=== PATIENT | male | born 1990 | race Caucasian/White ===

== ENCOUNTER 2020-12-27 19:26 | Emergency (ER) | payer MEDICAID, SELFPAY ==
--- NOTE | ~2020-12-27 | XR_ITS ---
EXAMINATION: XR ANKLE, RIGHT CLINICAL INFORMATION: Injury. COMPARISON: None TECHNIQUE: AP, lateral, and mortise views of the right ankle. FINDINGS: The bones and soft tissues are normal. No fracture. Alignment is anatomic. Joint spaces are maintained. No joint effusion. XR/XR ankle RT min 3V IMPRESSION: No fracture.
--- NOTE | ~2020-12-27 | US_ITS ---
EXAMINATION: ANKLE ULTRASOUND, RIGHT CLINICAL INFORMATION: Right posterior ankle pain with question of Achilles tendon rupture COMPARISON: None TECHNIQUE: Linear ultrasound transducer was utilized to examine the area of the Achilles tendon. FINDINGS: No evidence of an Achilles tendon rupture is seen. No abnormal mass or fluid collection is seen. US/US extremity nonvascular richardson IMPRESSION: Negative exam
[2020-12-27 19:39] VITALS: BP 142/83; PULSE 83; RESP 18; TEMP 36; O2SAT 99; BMI 32.8
--- NOTE | 2020-12-27 21:02 | ED.LOWEXIN ---
HPI - Extremity Injury (Lower) General Chief Complaint: Extremity Injury, Lower Stated Complaint: foot inj Source: patient Mode of arrival: wheelchair Limitations: no limitations History of Present Illness HPI Narrative: 30-year-old male presents with injury sustained to his right lower extremity, feels like his Achilles tendon popped as he was running bases by playing baseball. States that as soon as he landed on his foot and felt a tear he was unable to maintain weight. He does not report any other injuries at this time. MD complaint: ankle injury Onset (ago): hour(s) (Within the hour of arrival) Injury: Right: ankle Type of Injury: hyperflexion Place: street/outdoors Severity: severe Severity scale (1-10): 10 Relieving factors: nothing Exacerbating factors: weight bearing, movement and palpation Context: running Associated symptoms: snap/pop sensation, swelling and unable to bear weight Treatments prior to arrival: cold therapy Related Data Previous Rx's Medication Instructions Recorded oxycodone 5 mg PO Q6H PRN #10 tab 12/27/20 Allergies Allergy/AdvReac Type Severity Reaction Status Date / Time No Known Allergies Allergy Verified 12/27/20 19:39 Review of Systems Review of Systems: Constitutional: No Fever, No Chills ENT/Mouth: No Ear Pain, No Hoarseness, No sore throat Eyes: No Eye Pain, No Swelling, No Redness, No Foreign Body Cardiovascular: No Chest Pain, No SOB Respiratory: No Cough, No Dyspnea Gastrointestinal: No Nausea, No Vomiting, No Diarrhea, No abdominal Pain Genitourinary: No Dysuria, No Hematuria Musculoskeletal: positive right ankle pain, No Myalgias, No Joint Swelling Skin: No Skin lacerations, No rash Neuro: No Weakness, No Numbness, No Paresthesias, No Loss of Consciousness, No Dizziness, No Headache Psych: No Anxiety/Panic, No Depression Heme/Lymph: no easy bruising, no Lymphadenopathy Endocrine: No Polyuria, No Polydipsia Yes all other systems are reviewed and are negative [facility] Past Medical History Attestation statement: The following information was validated with the patient. Source: old records reviewed Social History Social History Advance Directives: No Advance Directives Information Provided: No Physical Exam Vital Signs: Vital Signs: Last Vital Signs Temp 96.8 F 12/27/20 19:39 Pulse 83 12/27/20 19:39 Resp 18 12/27/20 19:39 BP 142/83 H 12/27/20 19:39 Pulse Ox 99 12/27/20 19:39 Body Mass Index 32.8 Appearance: Alert. Oriented X3. No acute distress. Eyes: Pupils equal, round and reactive to light. ENT: Pharynx normal. Neck: Normal inspection. Neck supple. CVS: Normal heart rate and rhythm. Pulses normal. Respiratory: No respiratory distress. Breath sounds normal. Abdomen: Soft and nontender. Skin: Skin warm and dry. Normal skin color. Normal skin turgor. Extremities: Unable to flex, extend, internally and externally rotate the right lower extremity ankle, no calf pain, palpable space to the Achilles right above the calcaneus. Neuro: No motor deficit. No sensory deficit. Course Course Course Narrative: 30-year-old male presents with suspected Achilles tendon rupture. Will order x-rays as well as ultrasound. X-rays and ultrasound are negative however patient's physical presentation is positive as well as palpable space noted to the Achilles. Discussion with Orthopedic on-call, plan is for walking boot, nonweightbearing, crutches and follow-up in the office in the morning. Patient does understand the risks of narcotic use. Patient verbalized understanding of and agrees to plan of care discharge home. MDM - Extremity Injury (Lower) MDM Narrative Medical decision making narrative: Tendon rupture Differential Diagnosis Differential diagnosis: Likely ankle sprain and strain and ankle fracture Medical Records Attestation: I reviewed the patient's medical records. Lab Data Attestation: I reviewed the patient's lab results. Imaging Data Ankle x-ray: Attestation: I personally reviewed and interpreted this imaging study as follows: Radiologist's impression: EXAMINATION: XR ANKLE, RIGHT CLINICAL INFORMATION: Injury. COMPARISON: None TECHNIQUE: AP, lateral, and mortise views of the right ankle. FINDINGS: The bones and soft tissues are normal. No fracture. Alignment is anatomic. Joint spaces are maintained. No joint effusion. XR/XR ankle RT min 3V IMPRESSION: No fracture. Ankle ultrasound: Attestation: I personally reviewed and interpreted this imaging study as follows: Radiologist's impression: EXAMINATION: ANKLE ULTRASOUND, RIGHT CLINICAL INFORMATION: Right posterior ankle pain with question of Achilles tendon rupture COMPARISON: None TECHNIQUE: Linear ultrasound transducer was utilized to examine the area of the Achilles tendon. FINDINGS: No evidence of an Achilles tendon rupture is seen. No abnormal mass or fluid collection is seen. US/US extremity nonvascular richardson IMPRESSION: Negative exam Discharge Plan Discharge Clinical Impression: Achilles tendon rupture Qualifiers: Encounter type: initial encounter Laterality: right Qualified Code(s): S86.011A - Strain of right Achilles tendon, initial encounter Patient Disposition: Home, Self-Care Instructions: Achilles Tendon Rupture (ED) Additional Instructions: You were evaluated for injury to the right lower extremity. It is suspicious for a Achilles tendon rupture. Your ultrasound was negative however your presentation is positive. Please wear the walker boot. Do not put weight on that foot. Use crutches for all ambulation. We prescribed oxycodone which is a narcotic. This medication has high risk for addiction and abuse. Do not drive or operate machinery while taking this medication. This medication is constipating, please use MiraLax and Colace to help soften stools. Follow-up with orthopedics tomorrow. I discussed her case with Cherry FORBES. she is expecting your call. Thank you for choosing this emergency department for evaluation. Please follow-up with primary care physician as needed. Return to the emergency department for any new, concerning, or worsening symptoms. Prescriptions: New oxycodone 5 mg tablet 5 mg PO Q6H PRN (Reason: pain) Qty: 10 RF: 0 Referrals: Cherry Gant PA-C [Physician Section Cutter] - 2 days (Achilles tendon rupture) Stand Alone Forms: Work/School Release Interventions: ED Discharge Assessment Last Done: 12/28/20 00:24 Discharge Date/Time: 12/28/20 00:00
[2020-12-27] MEDS: oxyCODONE HCl Immed Release 5 MG TABLET PO (22:15)
--- NOTE | 2020-12-27 22:15 | PC.NURSE ---
Pt returns from [facility], medicated per MAR.
== END 2020-12-28 | disposition home or self-care (01) ==
PROVIDERS: Emergency Provider Internal Medicine
DX: S86.011A Strain of right Achilles tendon, initial encounter (principal); X58.XXXA Exposure to other specified factors, initial encounter; Y93.64 Activity, baseball; Y92.9 Unspecified place or not applicable; Y99.9 Unspecified external cause status
CPT/HCPCS: 73610; 76882; 99283; 99284

== ENCOUNTER → 2020-12-30 09:10 | Outpatient (BNVA) | payer MEDICAID, SELFPAY | PROVIDERS: Visit Provider Physician Assistant | DX: Z01.818 Encounter for other preprocedural examination (principal); S83.011A Lateral subluxation of right patella, initial encounter | CPT/HCPCS: 99202 ==

== ENCOUNTER 2021-01-03 12:17 | Day surgery (SDC) | payer MEDICAID, SELFPAY ==
--- NOTE | 2021-01-02 13:03 | P.CONAN_ITS ---
Documented by User: Justine Dean 01/02/21 13:06 HPI - Anesthesia Eval Consult details Narrative: 30yo M for Right Achilles Tendon Repair ? ROSARIO - reports waking with racing heart and sometimes SOB. No snoring per partner. Hx of negative sleep study, but pending repeat. prn opioids PMFSH Active Problems Active Problems: All Active Problems (Updated 12/30/20 @ 09:57 by Cherry Gant PA-C) Rupture of right Achilles tendon (Acute) Past Medical History Medical History No significant past medical history Social History Social History Alcohol intake: current Alcohol intake frequency: holidays/special occasions only Patient Tobacco Use Status: Never used Tobacco Use of substances other than those prescribed or required for medical reasons: No Have you been hit, kicked, punched, or otherwise hurt by someone within the past year? 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 Allergies Allergy/AdvReac Type Severity Reaction Status Date / Time No Known Allergies Allergy Verified 12/30/20 09:20 Exam Exam Date and Time: January 02, 2021 1303 Assessment and Plan Assessment Anesthesia Assessment: Chart Reviewed Documented by User: William Del Rosario MD 01/03/21 14:05 PMFSH Past Medical History Medical History No significant past medical history Social History Social History (Reviewed 01/03/21 @ 14:04 by WilliamMYESHA Gomez Alcohol intake: current Alcohol intake frequency: holidays/special occasions only Patient Tobacco Use Status: Never used Tobacco Use of substances other than those prescribed or required for medical reasons: No Have you been hit, kicked, punched, or otherwise hurt by someone within the past year? 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 Allergies Allergy/AdvReac Type Severity Reaction Status Date / Time No Known Allergies Allergy Verified 12/30/20 09:20 Exam Airway Mallampati Class: II TM Dist: >3cm Neck ROM: Full Loose/Missing/Broken Teeth: Yes (Front tooth repaired) Heart: RRR Assessment and Plan Assessment Anesthesia Assessment: Anesthesia Plan Discussed and Chart Reviewed Final Anesthetic Review NPO: Yes ASA Class: II Final Preanesthetic Review: No Changes in Pt Med Stat, Meds/Allgs Chart Reviewed, Consent Obtained/Reviewed and Anes Risks/Benef Reviewed Patient Risk: Intermediate Procedure Risk: Low Anesthetic Plan Anesthetic Plan: GA Disposition: Standard PACU
[2021-01-03] VITALS (9 sets, daily range): BP systolic 117–171; BP diastolic 61–92; PULSE 72–96; RESP 14–19; TEMP 36.1–36.4; O2SAT 94–100; BMI 32.8
[2021-01-03] MEDS: Lactated Ringers 1,000 ML 100 ML IVCONT (12:43)
[2021-01-03] MEDS: Scopolamine 1.5 MG PATCH.TD.3 TRANSDERMA (13:58)
--- NOTE | 2021-01-03 14:01 | MHC.SHP ---
Pre-Procedural Eval Section A The patient is an INPATIENT: No Changes since office visit: Yes Patient answered all questions; No Cold of Flu in the past 2 weeks, No New Medical Problems and No Changes in Medication The History & Physical has been completed within 30 days and I have reviewed it.: Yes Section B Chief Complaint: Achilles tendon rupture Allergies: Allergies Allergy/AdvReac Type Severity Reaction Status Date / Time No Known Allergies Allergy Verified 12/30/20 09:20 Plan I have reviewed the history and physical and performed a pertinent physical examination on my patient. No changes have occurred unless specified.
--- NOTE | 2021-01-03 15:35 | PM.OP ---
Brief Operative Note Date of Service: 01/03/21 Pre-op diagnosis: right achilles tendon rupture Post-op diagnosis: same Procedure: right achilles tendon repair Surgeon: Joaquin Beckman MD Anesthesia: GETA and local Was an Customer Acquisition Specialist used for this Procedure?: Yes Customer Acquisition Specialist: Flex Mathis Estimated blood loss (mL): 5 Tourniquet time (min): 30 Pathology: none sent Condition: stable Disposition: PACU
[2021-01-03] MEDS: Acetaminophen 325 MG TABLET 975 MG PO (16:05)
[2021-01-03] MEDS: HYDROmorphone HCl 0.5 MG/0.5 ML SYRINGE 0.25 MG IVPUSH ×2 (16:15→16:20)
--- NOTE | 2021-01-05 17:09 | P.OP_ITS ---
Operative Note Operative Note Date of Service: 01/05/21 Narrative: Pre-op diagnosis: right achilles tendon rupture Post-op diagnosis: same Procedure: right achilles tendon repair Surgeon: Joaquin Beckman MD Anesthesia: GETA and local Was an Automobile Appraiser used for this Procedure?: Yes Automobile Appraiser: Flex Mathis Estimated blood loss (mL): 5 Tourniquet time (min): 30 Pathology: none sent Condition: stable Disposition: PACU Procedure in detail: Patient brought the operating room placed prone and prepped and draped in standard sterile fashion. All bony prominences were well padded and a time-out was called to identify proper site procedure proper surgeon IV antibiotics per weight were administered. I began by exsanguinating the limb and insufflating tourniquet to 300 mm Hg. I then made a standard 3 cm incision just medial to the tendon defect of the Achilles. Sharp dissection was taken through the skin and blunt dissection was taken down to the 2 torn ends of the Achilles. These were debrided down to viable tissue. This was a complete rupture of the tendon. I then , using FiberWire 2 0 suture and a Krackow technique, placed suture in both the proximal and distal ends. I then tied these so that the 2 opposing tendon ends were in direct contact. I then over sewed this with the another FiberWire suture. I had excellent repair of the tendon. I then irrigated copiously. I then placed a 4 by for amnio cell membrane over the repair. I then closed with interrupted 3-0 Vicryl and a running Prolene with skin glue. Patient was placed in sterile dressings and then placed in a walking boot in 20 degrees of plantar flexion. He was then extubated brought to recovery room in stable condition there were no known complications.
== END 2021-01-03 17:05 | disposition home or self-care (01) ==
PROVIDERS: Visit Provider Orthopaedic Surgery
PROC: (CPT 27650; principal; 2021-01-03 15:00)
DX: S86.011A Strain of right Achilles tendon, initial encounter (principal); Y93.02 Activity, running; Y93.64 Activity, baseball; Y92.9 Unspecified place or not applicable; Y99.8 Other external cause status
CPT/HCPCS: 27650; J0690; J1100; J1170; J2250; J2405; J3010; J3590

== ENCOUNTER → 2021-01-13 09:22 | Outpatient (BNVA) | payer MEDICAID, SELFPAY | PROVIDERS: Visit Provider Physician Assistant | DX: Z48.02 Encounter for removal of sutures (principal); Z98.890 Other specified postprocedural states | CPT/HCPCS: 99212 ==

== ENCOUNTER 2021-01-18 10:41 | Outpatient (RCR) | payer MEDICAID, SELFPAY ==
--- NOTE | 2021-01-18 14:27 | MHC.PT.EP ---
[facility] [place] Office [place] Office [place] Office [address] Ely Sparrow [address] [phone] F: [phone] F: [phone] F: [phone] F: [phone] Physical Therapy Plan of Care Date of Evaluation: Date of Surgery: 01/05/21 Diagnosis: S/P RIGHT ACHILLES' TENDON REPAIR 01/05/21 NEXT ORTHO F/U 02/10/21 Assessment: 30 YO MALE REF TO PT W H/O Rt ACHILLES' RUPTURE 12/27/20 AND S/P Rt ACHILLES' REPAIR 01/05/21- PRESENTING W SILVIA CRUTCHES, Rt CAM BOOT WITH 2 INTERIOR HEEL LIFT. 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 OBJECTIVELY, Pt HAS LIMITED ROM IN Rt LE, DECR FLEXIBILITY IN Lt > Rt HIP, ACUTE VERTICAL ACHILLES'INCISION -> MONITOR MOBILITY IT HEALS, MILD WEAKNESS, AND MINIMAL PAIN AT THIS TIME. FUNCTIONALLY, Pt IS LIMITED DUE TO POST OP REPAIR RESTRICTIONS FOR ROM/ WT BEAR/ Rt BOOT-> UNABLE TO DRIVE, WORK, DECR NELSON TO INCR GAIT , STAIR MGMT, SHOWERING, ETC. Pt IS A GOOD PT CANDIDATE TO GUIDE HIM ALONG HIS POST-OP COURSE AND REGAINING FUNCT INDEPENDENCE. Frequency and Duration: The patient will be seen 1-2 x WK x 10 WKS Short Term Goals: Pt ED RE PROTECTING HEALING TISSUES Rt CALF IN 2 WKS Pt'S RIGHT DISTAL LE PAIN DECR 2-3/10 W ACTIVITY IN 2 WKS Pt DEMON GRAD INCR IN AROM Rt DISTAL LE W RESPECT TO ACHILLES' REPAIR IN 4 WKS IMPROVE GAIT MECH Pt CLEARED FOR WBAT/ DECR WEDGE HEIGHT IN Rt BOOT IN 3 WKS Half-Way Goals: PROMOTE PROPER MOVEMENT PATTERNS ->Pt INDEP W HEP AND STRENGTH/ PROPRIOCEPTION PROGRESSION IN 10 WKS Pt RETURN TO ADLs ( W MD CLEARANCE) EVIDENT IN IMPROVED LEFT BY AT LEAST 10 POINTS (AT EVAL 35/80) IN 10 WKS Treatment Plan: Modalities to reduce pain, spasms and effusion. Manual therapy to restore motion and function. Therapeutic exercise to improve strength and flexibility. Neuromuscular re-education for posture and balance. Therapeutic activities to return to functional activities of daily living. Electronically signed by: Jennifer AlPT Please sign and return to therapist. Thank you for your referral.
--- NOTE | 2021-02-21 13:53 | MHC.PT.DC ---
[facility] [place] Office [place] Office [place] Office [address] Ely Sparrow [address] [phone] F: [phone] F: [phone] F: [phone] F: [phone] Physical Therapy Discharge Report Diagnosis: S/P RIGHT ACHILLES' TENDON REPAIR 01/05/21 NEXT ORTHO F/U 02/10/21 Date of Surgery: 01/05/21 Date of Evaluation: 01/18/21 Date of Discharge: 02/21/21 Treatments to Date: 1 Cancellations to Date: 4 No Shows to Date: 0 Discharge Status: Physician Discontinued Tx Discharge Summary: 30 YO MALE REF TO PT W H/O Rt ACHILLES' RUPTURE 12/27/20 AND S/P Rt ACHILLES' REPAIR 01/05/21- PRESENTING W SILVIA CRUTCHES, Rt CAM BOOT WITH 2 INTERIOR HEEL LIFT. Pt HAD POOR ATTENDANCE DUE TO TRANSPORTATION, HIS CARE WAS CHANGED TO THE [facility] TO PROVIDE TRANSPORT, AND Pt PHONED AND NOTED HE HAD AN INFECTION AND REQ SURGICAL CORRECTION. HE IS D/C'D AT THIS TIME FROM PT AND PLEASE REORDER APPROPRIATE. Electronically signed by: Jennifer Al,PT Please sign and return to therapist. Thank you for your referral.
== END 2021-02-21 13:53 | disposition home or self-care (01) ==
LOC: HO.PT 10:41
PROVIDERS: PCP Internal Medicine; Visit Provider Physician Assistant
DX: Z98.890 Other specified postprocedural states (principal)
CPT/HCPCS: 97110; 97162

== ENCOUNTER → 2021-02-03 14:02 | Outpatient (BNVA) | payer MEDICAID, SELFPAY | PROVIDERS: Visit Provider Physician Assistant | DX: Z98.890 Other specified postprocedural states (principal); L03.115 Cellulitis of right lower limb | CPT/HCPCS: 99212 ==

== ENCOUNTER → 2021-02-06 10:33 | Outpatient (BNVA) | payer MEDICAID, SELFPAY | PROVIDERS: Visit Provider Physician Assistant | DX: T81.89XA Other complications of procedures, not elsewhere classified, initial encounter (principal); Z98.890 Other specified postprocedural states | CPT/HCPCS: 99212 ==

== ENCOUNTER → 2021-02-07 12:14 | Outpatient (BNVA) | payer MEDICAID, SELFPAY | PROVIDERS: Visit Provider Physician Assistant | DX: Z01.818 Encounter for other preprocedural examination (principal); S86.011A Strain of right Achilles tendon, initial encounter | CPT/HCPCS: 99212 ==

== ENCOUNTER → 2021-02-09 13:14 | Outpatient (BNVA) | payer MEDICAID, SELFPAY | PROVIDERS: Visit Provider Physician Assistant | DX: Z48.01 Encounter for change or removal of surgical wound dressing (principal); Z98.890 Other specified postprocedural states | CPT/HCPCS: 99212 ==

== ENCOUNTER 2021-02-10 10:03 | Day surgery (SDC) | payer MEDICAID, SELFPAY ==
[2021-02-10] VITALS (8 sets, daily range): BP systolic 141–183; BP diastolic 74–106; PULSE 83–101; RESP 16–20; TEMP 36.1–36.3; O2SAT 94–98; BMI 31.8
[2021-02-10] MEDS: Lactated Ringers 1,000 ML 50 ML IVCONT (10:51)
--- NOTE | 2021-02-10 11:14 | P.CONAN_ITS ---
[facility] Active Problems Active Problems: All Active Problems (Updated 02/07/21 @ 21:25 by Flex Mathis PA-C) Cellulitis (Acute) Hematoma (Acute) H/O Achilles tendon repair (Acute) Rupture of right Achilles tendon (Acute) Past Medical History Medical History No significant past medical history Family History Family history of problems with anesthesia: No Surgical History History of Problems with Anesthesia: No Social History Social History Alcohol intake: current Alcohol intake frequency: holidays/special occasions only Patient Tobacco Use Status: Former Tobacco user Tobacco use type: Cigarette Smoked in Last 30 Days: No Are you DNR?: No Advance Directives: No Advance Directives Information Provided: Yes Recently lost weight without trying: No Nutrition Risks: No Nutritional Risk Poor oral hygiene: No Current occupational status: employed 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 Allergies Allergy/AdvReac Type Severity Reaction Status Date / Time No Known Allergies Allergy Verified 02/06/21 11:27 Active Medications: Current Medications Generic Name Dose Route Start Last Admin Trade Name Jorjeq PRN Reason Stop Dose Admin Lactated Ringer's 1,000 mls @ 50 mls/hr 02/10/21 11:00 02/10/21 10:51 Lr IVCONT 50 mls/hr .Q20H MARY ANN Administration Exam Exam Date and Time: February 10, 2021 1114 Height,Weight and Vital Signs: Height 6 ft Weight 106.594 kg Last Vital Signs Temp 97.4 F 02/10/21 10:37 Pulse 97 02/10/21 10:37 Resp 16 02/10/21 10:37 BP 141/77 H 02/10/21 10:37 Pulse Ox 95 02/10/21 10:37 Airway Mallampati Class: II (Cap top front) TM Dist: >3cm Neck ROM: Full Heart: rrr Lungs: cta Assessment and Plan Final Anesthetic Review Family History of Problems with Anesthesia: No History of Problems with Anesthesia: No NPO: Yes ASA Class: II Final Preanesthetic Review: No Changes in Pt Med Stat, Meds/Allgs Chart Reviewed and Consent Obtained/Reviewed Patient Risk: Intermediate Procedure Risk: Intermediate Anesthetic Plan Anesthetic Plan: MAC: Disposition: Standard PACU
--- NOTE | 2021-02-10 11:39 | MHC.SHP ---
Pre-Procedural Eval Section A Date of Service: 02/10/21 The patient is an INPATIENT: No Changes since office visit: Yes Patient answered all questions; No Cold of Flu in the past 2 weeks, No New Medical Problems and No Changes in Medication The History & Physical has been completed within 30 days and I have reviewed it.: Yes Section B Chief Complaint: Achilles Tendon Hematoma Allergies: Allergies Allergy/AdvReac Type Severity Reaction Status Date / Time No Known Allergies Allergy Verified 02/06/21 11:27 Plan I have reviewed the history and physical and performed a pertinent physical examination on my patient. No changes have occurred unless specified.
--- NOTE | 2021-02-10 13:54 | PM.OP ---
Brief Operative Note Date of Service: 02/10/21 Pre-op diagnosis: right achilles wound brreakdown Post-op diagnosis: other (re-ruptur right achilles with wound breakdown) Procedure: revision achilles tendon repair Implants: Garcia and nephew dermal collagen allograft Surgeon: Joaquin Beckman MD Anesthesia: GETA Was an Transportation Dispatch Manager used for this Procedure?: No Estimated blood loss (mL): 0 Tourniquet time (min): 90 IV fluids (mL): 1,100 Pathology: other Condition: stable Disposition: PACU
[2021-02-10] MEDS: fentaNYL citrate/PF 100 MCG/2 ML VIAL 50 MCG IVPUSH ×2 (14:05→14:10)
[2021-02-10] MEDS: oxyCODONE HCl Immed Release 5 MG TABLET PO (14:07)
--- NOTE | 2021-02-16 14:48 | P.OP_ITS ---
Operative Note Operative Note Date of Service: 02/10/21 Narrative: Pre-op diagnosis: right achilles wound brreakdown Post-op diagnosis: other (re-rupture right achilles with wound breakdown) Procedure: revision achilles tendon repair Implants: Garcia and nephew dermal collagen allograft Surgeon: Joaquin Beckman MD Anesthesia: GETA Was an Blood Bank Business Manager used for this Procedure?: No Estimated blood loss (mL): 0 Tourniquet time (min): 90 IV fluids (mL): 1,100 Pathology: other Condition: stable Disposition: PACU Indications: This is 30-year-old who is approximately 7 weeks status post right Achilles tendon repair who presented 5-6 weeks postop with new onset redness and erythema and pain. His wound broke down he was consented to undergo wound irrigation and debridement with exploration and possible Achilles tendon repair. Procedure in detail patient brought the operating placed prone and his right lower extremity was prepped and draped in standard sterile fashion. A time-out was called to identify proper site proper procedure proper surgeon IV antibiotics per weight were held. I began by evaluating the incision. Once I probed it was clear that it was a full-thickness approximately 3 mm x 3 mm area with clear tracking to the Achilles tendon. I opened the incision up distally and proximally about a half a cm for visualization I was clear that there had been a complete re-rupture of the Achilles tendon. I therefore extended the incision proximally and distally along the prior incision line and explored the area. There was abundant FiberWire suture but the proximal tendon had retracted significantly. I removed all the suture and irrigated copiously and removed any necrotic debris. There was about 1 cm of distal stump left but it was short by 2-3 cm. There were small remaining fibers that were able to reach down to the in surgeon all tendon. I was able to reproduce a continuous tendon but approximately 20% of the normal tendon volume. I wrapped this and a dermal allograft after copious irrigation. Cultures were obtained. Patient was then given IV antibiotics and nylon was used in the skin. Patient was placed into a Proveena dressing. He was extubated worth recovery room in stable condition there were no known complications.
== END 2021-02-10 15:37 | disposition home or self-care (01) ==
LOC: HO.SSS 10:04
PROVIDERS: Visit Provider Orthopaedic Surgery
PROC: (CPT 27650; principal; 2021-02-10 11:30)
DX: S86.011A Strain of right Achilles tendon, initial encounter (principal); S86.091A Other specified injury of right Achilles tendon, initial encounter; Z98.890 Other specified postprocedural states; X58.XXXA Exposure to other specified factors, initial encounter; Y93.9 Activity, unspecified; Y92.9 Unspecified place or not applicable; Y99.8 Other external cause status; Z87.891 Personal history of nicotine dependence; Z79.899 Other long term (current) drug therapy
CPT/HCPCS: 27650; 87071; 87077; 87186; 87205; C1713; J0330; J1100; J2250; J2405; J3010

== ENCOUNTER → 2021-02-16 10:04 | Outpatient (BNVA) | payer MEDICAID, SELFPAY | PROVIDERS: Visit Provider Physician Assistant | DX: Z48.89 Encounter for other specified surgical aftercare (principal); Z98.890 Other specified postprocedural states; Z79.2 Long term (current) use of antibiotics | CPT/HCPCS: 99212 ==

== ENCOUNTER → 2021-02-24 12:00 | Outpatient (BNVA) | payer MEDICAID, SELFPAY | PROVIDERS: Visit Provider Physician Assistant | DX: Z48.89 Encounter for other specified surgical aftercare (principal); Z98.890 Other specified postprocedural states | CPT/HCPCS: 99212 ==

== ENCOUNTER → 2021-02-28 14:28 | Outpatient (BNVA) | payer MEDICAID, SELFPAY | PROVIDERS: Visit Provider Physician Assistant | DX: S86.011D Strain of right Achilles tendon, subsequent encounter (principal) | CPT/HCPCS: 99212 ==

== ENCOUNTER → 2021-03-07 12:55 | Outpatient (BNVA) | payer MEDICAID, SELFPAY | PROVIDERS: Visit Provider Physician Assistant | DX: M65.10 Other infective (teno)synovitis, unspecified site (principal) | CPT/HCPCS: 99212 ==

== ENCOUNTER 2021-03-14 13:30 | Day surgery (SDC) | payer MEDICAID, SELFPAY ==
[2021-03-14] VITALS (7 sets, daily range): BP systolic 119–132; BP diastolic 68–87; PULSE 78–90; RESP 16–18; TEMP 36.2–36.4; O2SAT 95–98; BMI 31.8
[2021-03-14] MEDS: Lactated Ringers 1,000 ML 50 ML IVCONT (13:45)
--- NOTE | 2021-03-14 14:31 | P.CONAN_ITS ---
HPI - Anesthesia Eval Consult details Narrative: [age] male presenting for Achilles tendon revision PMFSH Active Problems Active Problems: All Active Problems (Updated 03/07/21 @ 13:19 by Cherry Gant PA-C) Achilles tendon infection (Acute) Cellulitis (Acute) Hematoma (Acute) H/O Achilles tendon repair (Acute) Rupture of right Achilles tendon (Acute) Past Medical History Medical History No significant past medical history Family History Family history of problems with anesthesia: No Surgical History History of Problems with Anesthesia: Yes (Tonsillar swelling for 2 weeks following intubation with 8.0 ETT) Social History Social History Alcohol intake: current Alcohol intake frequency: holidays/special occasions only Patient Tobacco Use Status: Former Tobacco user Tobacco use type: Cigarette Smoked in Last 30 Days: No Use of substances other than those prescribed or required for medical reasons: No Are you DNR?: No Advance Directives: No Advance Directives Information Provided: Yes Recently lost weight without trying: No Nutrition Risks: No Nutritional Risk Current occupational status: employed 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 Allergies Allergy/AdvReac Type Severity Reaction Status Date / Time No Known Allergies Allergy Verified 02/24/21 12:10 Exam Exam Date and Time: March 14, 2021 1431 Height,Weight and Vital Signs: Height 6 ft Weight 235 lb Last Vital Signs Temp 97.5 F 03/14/21 13:54 Pulse 90 03/14/21 13:54 Resp 16 03/14/21 13:54 BP 123/79 03/14/21 13:54 Pulse Ox 95 03/14/21 13:54 Airway Mallampati Class: II TM Dist: >3cm Neck ROM: Full Loose/Missing/Broken Teeth: No Assessment and Plan Assessment Anesthesia Assessment: Anesthesia Plan Discussed and Chart Reviewed Final Anesthetic Review Family History of Problems with Anesthesia: No History of Problems with Anesthesia: Yes (Tonsillar swelling for 2 weeks following intubation with 8.0 ETT) NPO: Yes ASA Class: II Final Preanesthetic Review: No Changes in Pt Med Stat, Meds/Allgs Chart Reviewed, Consent Obtained/Reviewed and Anes Risks/Benef Reviewed Patient Risk: Low Procedure Risk: Low Anesthetic Plan Anesthetic Plan: GA Disposition: Standard PACU
--- NOTE | 2021-03-14 14:37 | MHC.SHP ---
Pre-Procedural Eval Section A Date of Service: 03/14/21 The patient is an INPATIENT: No Changes since office visit: Yes Patient answered all questions; No Cold of Flu in the past 2 weeks, No New Medical Problems and No Changes in Medication The History & Physical has been completed within 30 days and I have reviewed it.: Yes Section B Chief Complaint: synovitis Allergies: Allergies Allergy/AdvReac Type Severity Reaction Status Date / Time No Known Allergies Allergy Verified 02/24/21 12:10 Plan I have reviewed the history and physical and performed a pertinent physical examination on my patient. No changes have occurred unless specified.
--- NOTE | 2021-03-14 15:34 | P.BOP_ITS ---
Brief Operative Note Date of Service: 03/14/21 Pre-op diagnosis: infected achilles tendon Post-op diagnosis: same Procedure: irrigation and debridement right [place] Surgeon: Joaquin Beckman MD Anesthesia: GETA and local Was an Commercial Attache used for this Procedure?: Yes Commercial Attache: Flex Mathis Estimated blood loss (mL): 2 IV fluids (mL): 400 Pathology: none sent Condition: stable Disposition: PACU
--- NOTE | 2021-03-21 09:34 | P.OP_ITS ---
Operative Note Operative Note Date of Service: 03/21/21 Narrative: Pre-op diagnosis: infected achilles tendon Post-op diagnosis: same Procedure: irrigation and debridement right achilles Surgeon: Joaquin Beckman MD Anesthesia: GETA and local Was an Social Work Specialist used for this Procedure?: Yes Social Work Specialist: Flex Mathis Estimated blood loss (mL): 2 IV fluids (mL): 400 Pathology: none sent Condition: stable Disposition: PACU Procedure in detail: Patient was brought to the operating room and placed supine on the surgical table. He was prepped and draped in standard sterile fashion and a time out was called to identify proper site, proper procedure and IV antibiotics per weight were administered. I began by opening a 2-3 cm portion of the incision that was draining. Deep to this there was fiberwire suture that was removed. There was no viable achilles tendon at this level. All foreign material was removed and I irrigated copiously. I also removed all necrotic material and used a curette and a rongeur to stimulate bleeding in the tissues. I copiously irrigated with 3 l of saline and then closed with nylon. He was placed in a sterile dressing, extubated and brought to the recovery room in stable condition.
== END 2021-03-14 16:40 | disposition home or self-care (01) ==
PROVIDERS: Visit Provider Orthopaedic Surgery
PROC: (CPT 11043; principal; 2021-03-14 15:00)
DX: M65.18 Other infective (teno)synovitis, other site (principal)
CPT/HCPCS: 11043; J0690; J1170; J1885; J2250; J2405; J3010

== ENCOUNTER → 2021-03-27 11:20 | Outpatient (BNVA) | payer MEDICAID, SELFPAY | PROVIDERS: Visit Provider Physician Assistant | DX: M65.10 Other infective (teno)synovitis, unspecified site (principal) | CPT/HCPCS: 99212 ==

== ENCOUNTER → 2021-04-10 13:27 | Outpatient (BNVA) | payer MEDICAID, SELFPAY | PROVIDERS: PCP Internal Medicine; Visit Provider Physician Assistant | DX: Z48.89 Encounter for other specified surgical aftercare (principal); Z79.82 Long term (current) use of aspirin | CPT/HCPCS: 99212 ==

== ENCOUNTER → 2021-05-08 13:18 | Outpatient (BNVA) | payer MEDICAID, SELFPAY | PROVIDERS: PCP Internal Medicine; Visit Provider Physician Assistant | DX: M65.10 Other infective (teno)synovitis, unspecified site (principal); S86.011A Strain of right Achilles tendon, initial encounter; X58.XXXA Exposure to other specified factors, initial encounter; Y93.9 Activity, unspecified; Y92.9 Unspecified place or not applicable; Y99.8 Other external cause status; Z98.890 Other specified postprocedural states | CPT/HCPCS: 99212 ==

== ENCOUNTER 2021-06-23 11:00 | Outpatient (RCR) | payer MEDICAID, SELFPAY ==
--- NOTE | 2021-04-25 15:05 | MHC.PT.EP ---
[facility] [place] Office [place] Office [place] Office [address] Ely Sparrow [address] [phone] F: [phone] F: [phone] F: [phone] F: [phone] Physical Therapy Plan of Care Date of Evaluation: Date of Surgery: 01/05/21 Diagnosis: S/P RIGHT ACHILLES' TENDON REPAIR, IRRIGATION AND DEBRIDEMENT x 2 Assessment: 31 YO MALE RE-REFERRD TO PT S/P H/O INITIAL Rt RUPTURED ACHILLES' REPAIR 01/05/21, H/O SLIPPING AND FALLING W RE-RUPTURE W (+) INFECTION AND WOUND DEHISCENCE, THEN 2 SURGICAL IRRIGATION AND DEBRIDEMENT PROCEDURES W/O REPAIR OF RE- TEAR. HE PRESENTED THIS DATE W/O AD AND STATED HE OBTAINED A Rt DISTAL LE BRACE YESTERDAY. OBJECTIVE FINDINGS: DECR ROM SILVIA ANKLES, DECR FLEXIB IN SILVIA HIPS, DECR STRENGTH IN Rt LE ( HE DOES HAVE ADEQ STRENGTH FOR BASIC ADLs), (+) SCAR HYPOMOB Rt ACHILLES' AREA, AND FLUCTUATING PAIN IN Rt CALF AND KNEE. FUNCTIONALLY, Pt HAS ALTERED GAIT MECH ON LEVEL GROUND AND STAIRS, LIMITED ACTIVITIES , RESIDES ON 3RD FLOOR W STAIRS ONLY, AND DECR STAB AND PROPRIOCEPTION IN Rt DISTAL LE. HE IS MOTIVATED FOR PT AND HAS SOME APPREHENSION RE BARRIERS TO PROGRESS AND HEAL AND HIS ULTIMATE GOAL IS TO RETURN TO RUNNING. Frequency and Duration: The patient will be seen 2 x WK x 6 WKS Short Term Goals: Pt'S Rt CALF / KNEE PAIN DECR TO 2-3/10 IN 2 WKS IMPROVE GENTLE ROM Rt (AND LEFT) ANKLE WELL SILVIA HIP FLEXIBILITY IN 3 WKS PROGRESS W ADLs AND EDUC Pt RE ACHILLES' / SOFT TISSUE PROTECTION IN 3 WKS Human Resources Supervisor Goals: Pt INDEP W HEP, PROPRIOCEPTIVE EXER IN 6 WKS Pt DEMON IMPROVED ACTIVITY NELSON EVIDENT W IMPROVED LEFI SCORE BY 10 POINTS (55/80 AT EVAL) IN 6 WKS Pt DEMON RETURN TO LIGHT JOG W BRACE Rt DISTAL LE ( W DR SYLVESTER'S ACTIVITY CLEARANCE) IN 6 WKS Treatment Plan: Modalities to reduce pain, spasms and effusion. Manual therapy to restore motion and function. Therapeutic exercise to improve strength and flexibility. Neuromuscular re-education for posture and balance. Therapeutic activities to return to functional activities of daily living. Electronically signed by: Jennifer Al PT Please sign and return to therapist. Thank you for your referral.
--- NOTE | 2021-09-06 13:35 | MHC.PT.DC ---
[facility] [place] Office [place] Office [place] Office [address] Ely Sparrow [address] [phone] F: [phone] F: [phone] F: [phone] F: [phone] Physical Therapy Discharge Report Diagnosis: S/P RIGHT ACHILLES' TENDON REPAIR, IRRIGATION AND DEBRIDEMENT x 2 Date of Surgery: 01/05/21 Date of Evaluation: 04/25/21 Date of Discharge: 09/06/21 Treatments to Date: 12 Cancellations to Date: 7 No Shows to Date: Discharge Status: Improved Function Visit Non-compliance Discharge Summary: Pt W DECR ATTENDANCE FOR SCHED PT APPTS, I PHONED HIM AND HE NOTED HE HAD OTHER MEDICAL ISSUES WARRANTING HIS ATTENTION- HE HAS NOT RETURNED FOR FURTHER PT AT THIS TIME AND IS D/C FROM PT W HIS HEP Electronically signed by: Jennifer Al,PT Please sign and return to therapist. Thank you for your referral.
== END 2021-09-06 13:34 | disposition home or self-care (01) ==
LOC: HO.PT 11:00
PROVIDERS: PCP Internal Medicine; Visit Provider Physician Assistant
DX: M65.10 Other infective (teno)synovitis, unspecified site (principal)
CPT/HCPCS: 97110; 97112; 97140; 97162; 97530

== ENCOUNTER → 2021-08-17 12:56 | Outpatient (BNVA) | payer MEDICAID, SELFPAY | PROVIDERS: Visit Provider Physician Assistant | DX: Z47.89 Encounter for other orthopedic aftercare (principal) | CPT/HCPCS: 99212 ==

== ENCOUNTER → 2021-11-16 09:31 | Outpatient (BNVA) | payer MEDICAID, SELFPAY | PROVIDERS: Visit Provider Orthopaedic Surgery | DX: Z98.890 Other specified postprocedural states (principal) | CPT/HCPCS: 99212 ==

== ENCOUNTER → 2022-04-25 09:21 | Outpatient (REF) | payer MEDICAID, SELFPAY ==
--- NOTE | 2022-04-25 | HM_ITS ---
* Total monitoring time 23 hours and 58 minutes. * Underlying rhythm is sinus. Average rate 86/Min. Range 61 to 146/Min. About 19% of the time, rate greater than 100/Min. * No atrial fibrillation or flutter or AV blocks or pauses. * Very rare supraventricular and ventricular ectopy with minimal burden. * Patient diary describes 'stopped breathing' from 00:00 to 05:00 during sleep, but no relevant events on Holter. MTDD
--- NOTE | 2022-04-25 09:30 | CA_ITS ---
Transthoracic Echocardiogram Patient (Last, First, Middle): Oscar Ponce, Gender: Male Date of : 1990 Age: 32 Procedure Date: 04/25/2022 Procedure Type: Transthoracic Echocardiogram Location: OP Height: 180.34 cm Weight: 102.97 kg BSA: 2.23 m2 Heart Rate: bpm BP: 140 / 82 mmHg Facilities Engineering Manager: TO Referring MD: Nixon Woodard MD Symptoms: H/O PALPITATIONS AND REPOLARIZATION DISTUBANCES ON EKG Study Quality: Fair/Contrast ECG Rhythm: Sinus Conclusions: - The left ventricular systolic function is mildly decreased. The visually estimated ejection fraction is between 45-50%. - No obvious valvular pathology seen on this study. Findings Procedure Information Contrast agent, definity, is being given per protocol without apparent complications. Left Ventricle Normal left ventricular cavity size. There is normal left ventricular wall thickness. The left ventricular systolic function is mildly decreased. The visually estimated ejection fraction is between 45-50%. There is borderline global hypokinesis. Diastolic function is normal for age. Right Ventricle Mildly increased right ventricular cavity size. There is normal right ventricular systolic function. Atria Both atria are normal in size. Aortic Valve There is a normal trileaflet aortic valve. There is no aortic valve stenosis. There is no aortic valve regurgitation. Mitral Valve The mitral valve appears normal. There is no mitral valve regurgitation. There is no mitral valve stenosis. Pulmonic Valve The pulmonic valve is likely normal. Tricuspid Valve Normal tricuspid valve structure. There is trace tricuspid valve regurgitation. There is no evidence of pulmonary hypertension. Great Vessels The asc aorta is normal in size. Venous The inferior vena cava is normal in size and collapses greater than 50% with inspiration. Pericardium/Pleural There is no evidence of pericardial effusion. Prior Study Comparison No prior study available for comparison. Recommendations, Care & Conclusions No obvious valvular pathology seen on this study. Measurements 2D Linear Measurements IVSd: 0.87 0.6-0.9/0.6-1.0 cm LVIDd: 5.38 3.9-5.3/4.2-5.9 cm LVIDd Index: 2.41 2.4-3.2/2.2-3.1 cm/m2 LVIDs: 3.65 2.0-3.6 cm LVPWd: 0.85 0.7-1.1 cm LA Diam: 4.10 2.7-3.8/3.0-4.0 cm LAIDs Index: 1.84 1.5-2.3 cm/m2 LV Mass: 210.75 67-162/88-224 g LV Mass Index: 94.51 43-95/49-115 g/m2 LVOT Diam: 2.20 3.0+(-)1.3 cm 2D Systolic Function EF 4C: 56.30 >55% EF 2C: 50.80 >55% EF BiP: 54.50 >55% Mitral Valve MV Pk E: 0.58 MV PK A: 0.44 MV Decel Time: 195.00 E/A: 1.30 E'Lateral: 11.40 E'Medial: 8.16 E/E' Med: 7.10 E/E' Lat: 5.10 PHT: 57.00 MVA PHT: 3.86 Decel [place]: 2.97 Aortic Valve AoV Pk Dwight: 1.36 AoV Mn Dwight: 0.99 AoV VTI: 0.26 AoV Pk Grad: 7.00 Aov Mn Grad: 4.00 VAHE Cont.VTI: 2.19 LVOT LVOT Pk [place]ight: 0.87 LVOT Mn Dwight: 0.54 LVOT VTI: 0.15 LVOT Pk Grad: 3.00 LVOT Mn Grad: 1.00 LVOT Diam: 2.20 LVOT Area: 3.80 Diastolic Function MV Pk E: 0.58 MV Pk A: 0.44 E/A: 1.30 E'Medial: 8.16 E/E' Med: 7.10 E' Laterial: 11.40 E/E' Lat: 5.10 Right Ventricle TAPSE (mm): 21.70 TVS' Dwight: 11.50 Tricuspid Valve TR Pk Dwight: 1.79 TR Pk Grad: 13.00 RA Press: 3.00 Great Vessels Aorta Sinus of Valsalva: 3.46 2.0-3.5 cm Ao Asc: 3.10 2.1-3.4 cm Updated in Other Vendor System with Status of Final Carlos Phillips MD electronically signed on 04/25/2022 12:22:51 PM with status of Final
== END ==
LOC: HO.CARD 09:21
PROVIDERS: PCP Internal Medicine; Visit Provider Internal Medicine
DX: R00.2 Palpitations (principal)
CPT/HCPCS: 93226; 93306; Q9957

== ENCOUNTER 2022-05-02 10:15 | Emergency (ER) | payer MEDICAID, SELFPAY ==
--- NOTE | ~2022-05-02 | XR_ITS ---
EXAMINATION: XR CHEST CLINICAL INFORMATION: Fever. COMPARISON: 05/29/2012 chest radiograph. TECHNIQUE: 2 views of the chest were obtained. FINDINGS: No significant abnormality is noted involving the heart, lungs, mediastinum, bony thorax or soft tissues. XR/XR chest 2V IMPRESSION: No acute cardiopulmonary process.
[2022-05-02 10:38] VITALS: BP 143/93; PULSE 136; RESP 20; TEMP 38.2; O2SAT 96; BMI 31.6
[2022-05-02] MEDS: Ibuprofen 600 MG TABLET PO (10:50)
[2022-05-02 10:58] LABS: MANUAL DIFF FLAG NO
[2022-05-02 11:04] LABS: Basophils Absolute Auto 0.1 X10*3/uL (0.0-0.2); Basophils Percent Auto 0.8 % (0-2); Eosinophils Absolute Auto 0.1 X10*3/uL (0.0-0.4); Eosinophils Percent Auto 1.4 % (0-4); Hematocrit 42.5 % (42.0-52.0); Hemoglobin 14.9 g/dl (14.0-18.0); Imm Gran Abs Auto 0.02 X10*3/uL (0.00-0.03); Imm Gran Pct Auto 0.3 % (0.0-0.4); Lymphocytes Absolute Auto 0.4 X10*3/uL (1.2-4.9); Lymphocytes Percent Auto 5.9 % (20-40); Mean Corpuscular HGB Conc 35.1 g/dl (31.0-36.0); Mean Corpuscular Hemoglobin 31.2 pg (27.0-33.0); Mean Corpuscular Volume 89.1 fL (80.0-98.0); Mean Platelet Volume 10.6 fL (9.4-12.4); Monocytes Absolute Auto 0.7 X10*3/uL (0.1-1.2); Monocytes Percent Auto 10.8 % (2-11); Neutrophils Absolute Auto 5.3 x10*3/uL (2.0-8.3); Neutrophils Percent Auto 80.8 % (45-73); Platelet Count 206 X10*3/uL (160-400); Red Blood Count 4.77 X10*6/uL (4.60-5.80); Red Cell Distribution Width 11.5 % (11.0-16.0); White Blood Count 6.5 X10*3/uL (4.8-10.8)
[2022-05-02 11:14] LABS: COVID-19 Test Positive (Negative); IDNOW Serial# 55D5AD1C
[2022-05-02 11:25] LABS: Alanine Aminotransferase 142 U/L (0-40); Albumin Level 4.9 g/dL (3.5-5.0); Alkaline Phosphatase 82 U/L (39-117); Anion Gap 20 (12-20); Aspartate Amino Transferase 138 U/L (5-37); Bilirubin Total 0.6 mg/dL (0.0-1.0); Blood Urea Nitrogen 12 mg/dL (9-16); Calcium 9.9 mg/dL (8.4-10.2); Carbon Dioxide 23 mmol/L (22-29); Chloride 99 mmol/L (96-108); Creatinine Clr Calc Pharmacy 156.5; Estimated Glomerular Filt Rate > 60; Glucose Random 96 mg/dL (60-115); Potassium 4.5 mmol/L (3.3-5.1); Sodium 137 mmol/L (135-145); Total Protein 8.5 g/dL (6.5-8.0)
[2022-05-02 20:00] VITALS: BP 154/88; PULSE 115; RESP 18; TEMP 37.8; O2SAT 96
[2022-05-02 20:07] VITALS: BP 154/88; PULSE 115; TEMP 37.8
[2022-05-02] MEDS: Acetaminophen 325 MG TABLET 975 MG PO (20:08)
--- NOTE | 2022-05-02 21:38 | ED.FEVER ---
HPI - Fever General Chief Complaint: Fever Stated Complaint: fever chest pain back pain Time Seen by Provider: 05/02/22 21:30 Source: patient Mode of arrival: ambulatory Limitations: no limitations History of Present Illness HPI Narrative: Patient comes to the ED complaining of fever, chills, headache, bilateral back pain. Patient states today is the 2nd day with symptoms. Patient has been also been coughing. Patient took ibuprofen at home, patient received 1 dose of Tylenol here in the emergency room. Patient states that he is not immunized for COVID-19. Patient denies chest pain or shortness of breath, no lower extremity edema Related Data Previous Rx's Medication Instructions Recorded leg brace (Ankle Brace) #1 ea 04/14/21 miscellaneous medical supply 1 ea miscellaneous .daily achilles 04/14/21 tendon rupture 360 days #1 ea acetaminophen 500 mg tablet 500 mg PO Q6H PRN fever or pain 05/02/22 #20 tabs Allergies Allergy/AdvReac Type Severity Reaction Status Date / Time No Known Allergies Allergy Verified 05/02/22 10:37 Review of Systems Review of Systems: Constitutional : No Weight loss, complaining of fever, chills, fatigue and generalized malaise ENT/Mouth : No Hearing loss, No Ear Pain, No Nasal Congestion, No Sinus Pain, No Hoarseness, No sore throat, No Rhinorrhea, No Swallowing Difficulty Eyes: No Eye Pain, No Swelling, No Redness, No Foreign Body, No Discharge, No Vision Changes Cardiovascular : No Chest Pain, No SOB, No Dyspnea on Exertion, No Orthopnea, No Edema, No Palpitations Respiratory : Complaining of increased Cough, No Sputum, No Wheezing, No Smoke Exposure, No Dyspnea Gastrointestinal : No Nausea, No Vomiting, No Diarrhea, No Constipation, No abdominal Pain, No Hematochezia, No Melena Genitourinary : no irregular bleeding, No Dysuria, No Urinary Frequency, No Hematuria, No Urinary Incontinence, No Urgency, No Flank Pain, No Urinary Flow Changes, No Hesitancy Musculoskeletal : No joint pain, No Myalgias, No Joint Swelling Skin : No Skin Lesions, No rash Neuro : No Weakness, No Numbness, No Paresthesias, No Loss of Consciousness, No Dizziness, No Headache Psych : No Anxiety/Panic, No Depression, No SI/HI/AH/VH, No Social Issues, Heme/Lymph: No Bruising, No Bleeding,No Lymphadenopathy Endocrine : No Polyuria, No Polydipsia, No Temperature Intolerance PMFSH Past Medical History Medical History No significant past medical history Sleep apnea Social History Social History Alcohol intake: current Alcohol intake frequency: holidays/special occasions only Patient Tobacco Use Status: Former Tobacco user Tobacco use type: Cigarette Advance Directives: No Advance Directives Information Provided: No Current occupational status: employed 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 Oriented X3. No acute distress. Well-appearing Eyes: Pupils equal, round and reactive to light. ENT: Pharynx normal. Neck: Normal inspection. Neck supple. No lymph nodes noted. No crepitus CVS: Normal heart rate and rhythm. Pulses normal. Normal S1 and S2 Respiratory: No respiratory distress. Breath sounds normal. No Wheezing. No rales Abdomen: Soft and nontender. No rigidity. No distention. Skin: Skin warm and dry. Normal skin color. Normal skin turgor. Extremities: No lower extremity edema. No Lacerations. No Rash Neuro: Oriented X 3. No motor deficit. No sensory deficit. Moving all extremities. No slurred speech. CN 2 through 12 grossly intact Psych: calm, cooperative, normal affect Course Course Course Narrative: Patient's heart rate below 100 now, initially tachycardic with fever. Patient's well's criteria for PE and DVT are both 0 PE/DVT are not suspected. Patient was given the option of starting Paxlovid. Patient declined. Patient states that he does not like taking medications including vaccines such as the flu and COVID. MDM - Fever Lab Data Result diagrams: 05/02/22 10:53 05/02/22 10:53 Labs: Lab Results 05/02/22 05/02/22 05/02/22 Range/Units 10:53 10:53 10:53 WBC 6.5 (4.8-10.8) X10*3/uL RBC 4.77 (4.60-5.80) X10*6/uL Hgb 14.9 (14.0-18.0) g/dl Hct 42.5 (42.0-52.0) % MCV 89.1 (80.0-98.0) fL MCH 31.2 (27.0-33.0) pg MCHC 35.1 (31.0-36.0) g/dl RDW 11.5 (11.0-16.0) % Plt Count 206 (160-400) X10*3/uL MPV 10.6 (9.4-12.4) fL Immature Gran % (Auto) 0.3 (0.0-0.4) % Neut % (Auto) 80.8 H (45-73) % Lymph % (Auto) 5.9 L (20-40) % [place] % (Auto) 10.8 (2-11) % Eos % (Auto) 1.4 (0-4) % Baso % (Auto) 0.8 (0-2) % Lymph # (Auto) 0.4 L (1.2-4.9) X10*3/uL [place] # (Auto) 0.7 (0.1-1.2) X10*3/uL Eos # (Auto) 0.1 (0.0-0.4) X10*3/uL Baso # (Auto) 0.1 (0.0-0.2) X10*3/uL Abs Immat Gran (auto) 0.02 (0.00-0.03) X10*3/uL Absolute Neuts (auto) 5.3 (2.0-8.3) x10*3/uL Absolute Nucleated RBC 0.000 (0.0-0.012) X10*3/uL Nucleated RBC % (auto) 0.0 (0.0-0.2) /100WBC Sodium 137 (135-145) mmol/L Potassium 4.5 (3.3-5.1) mmol/L Chloride 99 (96-108) mmol/L Carbon Dioxide 23 (22-29) mmol/L Anion Gap 20 (12-20) BUN 12 (9-16) mg/dL Creatinine 0.82 (0.5-1.4) mg/dL Estim Creat Clear Calc 156.5 Estimated GFR > 60 Random Glucose 96 (60-115) mg/dL Calcium 9.9 (8.4-10.2) mg/dL Total Bilirubin 0.6 (0.0-1.0) mg/dL AST 138 H (5-37) U/L ALT 142 H (0-40) U/L Alkaline Phosphatase 82 (39-117) U/L Total Protein 8.5 H (6.5-8.0) g/dL Albumin 4.9 (3.5-5.0) g/dL COVID-19 (DAVID) Positive A (Negative) COVID-19 Clin Com See Note Discharge Plan Discharge Clinical Impression: COVID-19 Patient Disposition: Home, Self-Care Instructions: COVID-19 (Coronavirus Disease 2019) (ED) Additional Instructions: Please follow-up with your primary care physician tomorrow. If you have any worsening or new symptoms, please return to the emergency room or call 911 Prescriptions: New acetaminophen 500 mg tablet 500 mg PO Q6H PRN (Reason: fever or pain) Qty: 20 0RF No Action (DME) Ankle Brace Misc See Rx Instructions .Route Qty: 1 0RF Rx Instructions: As directed [facility] misc[facility] .daily 360 Days Qty: 1 0RF Rx Instructions: AFO brace for the right foot/ankle. S/p Achilles tendon rupture Stand Alone Forms: Work/School Release
== END 2022-05-02 22:46 | disposition home or self-care (01) ==
PROVIDERS: Emergency Provider Emergency Medicine; PCP Internal Medicine
DX: U07.1 COVID-19 (principal); R50.9 Fever, unspecified
CPT/HCPCS: 71046; 80053; 85025; 87635; 99283

== ENCOUNTER 2023-05-02 14:45 | Outpatient (REF) | payer MEDICAID, SELFPAY ==
[2023-05-02 17:44] LABS: MANUAL DIFF FLAG NO
[2023-05-02 17:48] LABS: Basophils Absolute Auto 0.1 X10*3/uL (0.0-0.2); Basophils Percent Auto 0.5 % (0-2); Eosinophils Absolute Auto 0.2 X10*3/uL (0.0-0.4); Eosinophils Percent Auto 1.9 % (0-4); Hematocrit 44.2 % (42.0-52.0); Hemoglobin 15.4 g/dl (14.0-18.0); Imm Gran Abs Auto 0.05 X10*3/uL (0.00-0.03); Imm Gran Pct Auto 0.5 % (0.0-0.4); Lymphocytes Absolute Auto 1.8 X10*3/uL (1.2-4.9); Lymphocytes Percent Auto 19.3 % (20-40); Mean Corpuscular HGB Conc 34.8 g/dl (31.0-36.0); Mean Corpuscular Hemoglobin 31.2 pg (27.0-33.0); Mean Corpuscular Volume 89.5 fL (80.0-98.0); Mean Platelet Volume 11.3 fL (9.4-12.4); Monocytes Absolute Auto 0.8 X10*3/uL (0.1-1.2); Neutrophils Absolute Auto 6.3 x10*3/uL (2.0-8.3); Neutrophils Percent Auto 68.8 % (45-73); Platelet Count 197 X10*3/uL (160-400); Red Blood Count 4.94 X10*6/uL (4.60-5.80); Red Cell Distribution Width 11.5 % (11.0-16.0); White Blood Count 9.2 X10*3/uL (4.8-10.8)
[2023-05-02 18:07] LABS: Anion Gap 16 (12-20); Blood Urea Nitrogen 14 mg/dL (9-16); Calcium 10.2 mg/dL (8.4-10.2); Carbon Dioxide 23 mmol/L (22-29); Chloride 103 mmol/L (96-108); Estimated Glomerular Filt Rate > 60; Glucose Random 86 mg/dL (60-115); Potassium 3.6 mmol/L (3.3-5.1); Sodium 138 mmol/L (135-145)
[2023-05-02 18:48] LABS: TSH reflex Free T4 2.39 uIU/mL (0.32-4.0)
== END 2023-05-02 14:46 | disposition home or self-care (01) ==
LOC: HO.CHCLDS 14:45
PROVIDERS: Visit Provider Internal Medicine
DX: F41.9 Anxiety disorder, unspecified (principal)
CPT/HCPCS: 36415; 80048; 84443; 85025

== ENCOUNTER → 2024-05-19 09:19 | Outpatient (BNVA) | payer SELFPAY | PROVIDERS: PCP Internal Medicine; Visit Provider Physician Assistant Medical | DX: Z02.79 Encounter for issue of other medical certificate (principal) ==